=== PATIENT | male | born 1960 | race Caucasian/White ===

== ENCOUNTER 2023-02-21 16:57 | Inpatient (IN) | payer OTHER ==
[~2023-02-21] VITALS: Ht 170.2 cm; Wt 93.3 kg
[2023-02-21] MEDS ORDERED: DOXA2TAB86 PO (17:14)
[2023-02-21] MEDS ORDERED: CLON0.1T2 PO (17:14)
[2023-02-21] MEDS ORDERED: POTA8TAB71 PO (17:14)
[2023-02-21] MEDS ORDERED: GABA-1181 PO (17:14)
[2023-02-21] MEDS ORDERED: PANT-31 PO (17:14)
[2023-02-21] MEDS ORDERED: TOPI25 PO (17:14)
[2023-02-21] MEDS ORDERED: ESCI20TA87 PO (17:14)
[2023-02-21] MEDS ORDERED: METF-1211 PO (17:14)
[2023-02-21] MEDS ORDERED: ATOR40TA28 PO (17:14)
[2023-02-21] MEDS ORDERED: TICA90TA PO (17:14)
[2023-02-21] MEDS ORDERED: GLIP5TAB16 PO (17:14)
[2023-02-21] MEDS ORDERED: CHOL25TA4 PO (17:14)
[2023-02-21] MEDS ORDERED: ASPI-1450 PO (17:14)
[2023-02-21] MEDS ORDERED: METO25 PO (17:14)
[2023-02-21] MEDS ORDERED: LABETALOL HCL 5 MG/ML 20 ML VIAL IVP PRN ×2 (17:15)
[2023-02-21 17:24] LABS: BASOPHILS % (AUTO) 0.6 % (0.0-2.0); EOSINOPHILS % (AUTO) 0.8 % (1.0-6.0); HEMATOCRIT 46.4 % (41-53); HEMOGLOBIN 15.4 g/dL (13.5-17.5); LYMPHOCYTES # (AUTO) 1.1 K/uL (1.0-4.8); LYMPHOCYTES % (AUTO) 9.9 % (22.0-44.0); MEAN CORPUSCULAR HEMOGLOBIN 27.8 pg (26.0-34.0); MEAN CORPUSCULAR HGB CONC 33.3 G/dL (31.0-37.0); MEAN CORPUSCULAR VOLUME 84 fL (80-100); MONOCYTES # (AUTO) 0.7 K/uL (0.1-1.0); MONOCYTES % (AUTO) 6.2 % (2.0-9.0); NEUTROPHILS % (AUTO) 82.5 % (40.0-70.0); PLATELET COUNT (AUTO) 257 K/uL (150-450); RED BLOOD CELL COUNT(AUTO) 5.54 MIL/uL (4.50-5.90); RED CELL DISTRIBUTION WIDTH 16.8 % (11.5-14.5); WHITE BLOOD COUNT (AUTO) 10.9 K/uL (4.5-11.0)
[2023-02-21] MEDS ORDERED: IOHEXOL 350 MG/ML 100 ML VIAL ONE (17:25)
[2023-02-21] MEDS ORDERED: SODIUM CHLORIDE 0.9% 100 ML ONE (17:25)
[2023-02-21 17:36] LABS: INR 1.1 (0.9-1.1); PROTHROMBIN TIME 11.1 SEC (9.4-11.6)
[2023-02-21 17:40] LABS: ANION GAP 17 mmol/L (8-16); CALCIUM, TOTAL 9.8 mg/dL (8.8-10.5); CARBON DIOXIDE 19 mmol/L (22-29); CHLORIDE 103 mmol/L (98-107); CREATININE 1.09 mg/dL (0.60-1.30); GLOMERULAR FILTR. RATE CALC > 60 mL/min (>60); GLUCOSE,RANDOM 155 mg/dL (70-110); SODIUM SERUM 139 mmol/L (136-145); UREA NITROGEN, BLOOD 18 mg/dL (7-18)
[2023-02-21 17:45] LABS: ALANINE AMINOTRANSFERASE 50 U/L (12-78); ALKALINE PHOSPHATASE 72 U/L (46-116); ASPARTATE AMINOTRANSFERASE 28 U/L (15-37); BILIRUBIN,TOTAL 0.3 mg/dL (0.1-1.0); TOTAL PROTEIN, SERUM 7.8 g/dL (6.4-8.2)
[2023-02-21 17:47] LABS: TROPONIN I-HIGH SENSITIVITY 8 ng/L (<76)
[2023-02-21 20:17] LABS: COVID AG,FIA SOURCE NASAL SWAB
[2023-02-21 20:49] LABS: SARS-COV2 (COVID) ANTIGEN,FIA Negative (Negative)
[2023-02-21] MEDS ORDERED: ZOLPIDEM TARTRATE 5 MG TABLET PO PRN (21:45)
[2023-02-21] MEDS ORDERED: ACETAMINOPHEN 325 MG TABLET PO PRN (21:45)
[2023-02-21] MEDS ORDERED: BISACODYL 10 MG RECTAL RECTAL SUPPOSITORY PR PRN (21:45)
[2023-02-21] MEDS ORDERED: MAGNESIUM HYDROXIDE SUSPENSION 30 ML UDCUP PO PRN (21:45)
[2023-02-21] MEDS ORDERED: MORPHINE SULFATE 2 MG/ML SYRINGE IVP PRN (21:45)
[2023-02-21] MEDS ORDERED: ONDANSETRON HCL 4 MG/2 ML VIAL IVP PRN (21:45)
[2023-02-21 22:35] VITALS: BP 148/72; PULSE 85; RESP 19; TEMP 97.4
[2023-02-21] MEDS: HYDROCODONE/ACETAMINOPHEN 5-325 MG TABLET PO PRN (22:44)
[2023-02-22] VITALS: BP 116/75; PULSE 69; RESP 18; TEMP 97.6
[2023-02-22] MEDS: HEPARIN SODIUM,PORCINE 5,000 UNITS/ML VIAL SQ SCH ×3 (00:28→16:39)
[2023-02-22 04:39] VITALS: BP 122/76; PULSE 65; RESP 19; TEMP 97.8
[2023-02-22 04:41] LABS: APPEARANCE,URINE CLEAR (CLEAR); BILIRUBIN,URINE NEGATIVE (NEGATIVE); COLOR,URINE LIGHT YELLOW (YELLOW); GLUCOSE, URINE (UA) NEGATIVE (NEGATIVE); LEUKOCYTE ESTERASE ,URINE NEGATIVE (NEGATIVE); NITRATE,URINE NEGATIVE (NEGATIVE); OCCULT BLOOD,URINE NEGATIVE (NEGATIVE); PH,URINE 5.5 (5.0-8.0); PH,URINE DRUG SCREEN 5.5 (5.0-8.0); PROTEIN,URINE 30-70 mg/dL (NEGATIVE); UROBILINOGEN,URINE <=1.0 mg/dL (<=1.0)
[2023-02-22 04:47] LABS: ALCOHOL, URINE DRUG SCREEN NEGATIVE (NEGATIVE); AMPHET/METH SCREEN,URINE NEGATIVE (NEGATIVE); BARBITURATE SCREEN, URINE NEGATIVE (NEGATIVE); BENZODIAZEPINES SCREEN,URINE NEGATIVE (NEGATIVE); CANNABINOID SCREEN,URINE NEGATIVE (NEGATIVE); COCAINE SCREEN,URINE NEGATIVE (NEGATIVE); METHADONE SCREEN, URINE NEGATIVE (NEGATIVE); OPIATE SCREEN,URINE POSITIVE (NEGATIVE); PHENCYCLIDINE SCREEN,URINE NEGATIVE (NEGATIVE)
[2023-02-22 05:01] LABS: BACTERIA,URINE None Seen /HPF (None Seen); RBC,URINE None Seen /HPF (0-2); SQUAMOUS EPITHELIAL CELL,UR None Seen /LPF (None Seen); WBC,URINE None Seen /HPF (0-5)
[2023-02-22 06:32] LABS: GLUCOMETER DEV NAME(LOC) 5N.1C; GLUCOSE,POINT OF CARE 94 MG/DL (70-110)
[2023-02-22 06:40] LABS: CHOL/HDL RATIO 2.7 (4.2-7.3); THYROID STIMULATING HORMONE 3.11 uIU/mL (0.36-3.74)
[2023-02-22] MEDS: POTASSIUM CHLORIDE 8 MEQ ER TABLET PO SCH (08:07)
[2023-02-22] MEDS: CHOLECALCIFEROL (VIT D3) 1,000 UNITS [25 MCG] TABLET PO SCH (08:07)
[2023-02-22] MEDS: METOPROLOL TARTRATE 25 MG TABLET PO SCH (08:07)
[2023-02-22] MEDS: ASPIRIN 81 MG CHEWABLE TABLET PO SCH (08:07)
[2023-02-22] MEDS: DOCUSATE SODIUM 100 MG CAPSULE PO SCH ×2 (08:07→20:26)
[2023-02-22] MEDS: DOXAZOSIN MESYLATE 2 MG TABLET PO SCH (08:07)
[2023-02-22] MEDS: PANTOPRAZOLE SODIUM 40 MG DR TABLET PO SCH (08:07)
[2023-02-22 08:52] VITALS: BP 138/71; PULSE 73; RESP 20; TEMP 98
[2023-02-22] MEDS ORDERED: LORazepam 2 MG/ML VIAL IVP ONE (09:30)
[2023-02-22 11:41] LABS: GLUCOMETER DEV NAME(LOC) 5S.1B; GLUCOSE,POINT OF CARE 90 MG/DL (70-110)
[2023-02-22 11:50] VITALS: BP 122/75; PULSE 63; RESP 18; TEMP 98
[2023-02-22 16:37] VITALS: BP 122/72; PULSE 66; RESP 18; TEMP 98
[2023-02-22 20:49] VITALS: BP 135/92; PULSE 69; RESP 18; TEMP 98.2
[2023-02-22] MEDS ORDERED: ATORVASTATIN CALCIUM 40 MG TABLET PO SCH (21:00)
[2023-02-22] MEDS ORDERED: TOPIRAMATE 25 MG TABLET PO SCH (21:00)
[2023-02-23] VITALS: BP 146/89; PULSE 75; RESP 19; TEMP 97.9
[2023-02-23] MEDS: HYDROCODONE/ACETAMINOPHEN 5-325 MG TABLET PO PRN (00:05)
[2023-02-23] MEDS: HEPARIN SODIUM,PORCINE 5,000 UNITS/ML VIAL SQ SCH ×2 (00:05→08:15)
[2023-02-23 01:26] LABS: GLUCOMETER DEV NAME(LOC) 5N.2C; GLUCOSE,POINT OF CARE 147 MG/DL (70-110)
[2023-02-23 04:41] VITALS: BP 121/83; PULSE 58; RESP 18; TEMP 98
[2023-02-23] MEDS: DOXAZOSIN MESYLATE 2 MG TABLET PO SCH (08:15)
[2023-02-23] MEDS: METOPROLOL TARTRATE 25 MG TABLET PO SCH (08:15)
[2023-02-23] MEDS: DOCUSATE SODIUM 100 MG CAPSULE PO SCH (08:15)
[2023-02-23] MEDS: PANTOPRAZOLE SODIUM 40 MG DR TABLET PO SCH (08:16)
[2023-02-23] MEDS: CHOLECALCIFEROL (VIT D3) 1,000 UNITS [25 MCG] TABLET PO SCH (08:16)
[2023-02-23] MEDS: POTASSIUM CHLORIDE 8 MEQ ER TABLET PO SCH (08:16)
[2023-02-23] MEDS: ASPIRIN 81 MG CHEWABLE TABLET PO SCH (08:16)
[2023-02-23 08:27] VITALS: BP 135/89; PULSE 66; RESP 18; TEMP 98.3
[2023-02-23 11:33] VITALS: BP 127/76; PULSE 61; RESP 18; TEMP 97.9
[2023-02-23 15:31] VITALS: BP 134/87; PULSE 76; RESP 18; TEMP 98
== END 2023-02-23 16:20 | DRG 47 ==
LOC: EMS 16:59 → 5S 20:47
PROVIDERS: ADMIT Internal Medicine; ATTEND Internal Medicine
DX: G45.9 Transient cerebral ischemic attack, unspecified (principal); I69.351 Hemiplegia and hemiparesis following cerebral infarction affecting right dominant side; E11.9 Type 2 diabetes mellitus without complications; E78.5 Hyperlipidemia, unspecified; K21.9 Gastro-esophageal reflux disease without esophagitis; R32 Unspecified urinary incontinence; I10 Essential (primary) hypertension; Z20.822 Contact with and (suspected) exposure to COVID-19; Z76.5 Malingerer [conscious simulation]; Z88.0 Allergy status to penicillin; Z79.84 Long term (current) use of oral hypoglycemic drugs; Z79.82 Long term (current) use of aspirin; Z79.899 Other long term (current) drug therapy
CPT/HCPCS: 70496; 70498; 70551; 71045; 80053; 80061; 80307; 81001; 82948; 82962; 84443; 84484; 85025; 85610; 85730; 86850; 86870; 86900; 86901; 87081; 92610; 93005; 93880; 97163; 97530; 99291; J1644; J2060; J3490; J7050; Q9967; 36415-L1; 36415-TC; 70450; 70450-TC